=== PATIENT | male | born 1965 | race Two or more races ===

== ENCOUNTER 2024-10-31 12:15 | Emergency (ER) | payer OTHER, MEDICAID ==
[~2024-10-31] VITALS: Ht 165.1 cm; Wt 81.8 kg
--- NOTE | 2024-10-31 13:00 | ED.PDOC ---
GI ASSESSMENT HPI Comments HPI: Poor Historian. 59-year-old male with history of liver cirrhosis liver cancer and ascites presents to the emergency department for recurrence of his abdominal distention. Most recent paracentesis was last Sunday. Today Sunday he complaining of some abdominal discomfort and distention that started noticing this past Sunday. Patient has some associated mild shortness of breath. Denies any other acute symptoms. Denies any fever nausea or vomiting. VITALS: Temp: 98.3 F RR: 18 02 sat : 98% on room air HR: 104 BP: 137/96 PMH:liver cancer, DM, HTN PSH: back surgery, paracentesis Social history: denies tobacco use, denies ETOH use, denies drug use Medications: unknown Allergies: nkda REVIEW OF SYSTEMS: CONSTITUTIONAL: Denies acute: fever, diaphoresis, chills, HEAD: Denies acute: headache, photophobia Eyes: Denies acute: Double vision, vision loss, eye pain, eye discharge. EARS: Denies acute: tinnitus, hearing loss, ear discharge, ear pain, THROAT: Denies acute: sore throat, swelling, difficulty swallowing , pain with swallowing, change in voice. NECK: Denies acute: neck pain, neck swelling, stiff neck. HEART: Denies acute : chest pain, palpitations, LUNGS: Denies acute: SOB, wheezing, cough, hemoptysis ABDOMEN: Denies acute: Nausea, Vomiting, diarrhea, melena , hematemesis, hematochezia SKIN: Denies acute: rash, redness, lesions, itchiness. EXTREMITIES: Denies acute: calf pain, numbness, tingling, weakness, denies pain in extremity. Denies acute: Low back pain. Neuro: Denies acute: focal neurological deficit, motor or sensory focal neurological deficit, tremors, seizure like activity, confusion, dizziness, change in mental status, loss of bowel or bladder function, cauda equina like symptoms. : Denies acute: dysuria, hematuria, flank pain, increase in urinary frequency. PSYCH: Denies acute: hallucination, suicidal ideation, homicidal ideation. PHYSICAL EXAM: General: no acute distress, awake and alert. Head: normocephalic, atraumatic. Neck: supple, trachea is midline, no swelling. Throat: Normal phonation. Eyes:, no erythema, no purulent discharge, no proptosis, no icterus. Heart: regular rate, regular rhythm, no significant murmur appreciated. Lungs: no apparent respiratory distress, Able to speak in full sentences. No wheezing, no rhonchi, no crackles. No stridors Clear to auscultation bilaterally. Abdomen: non tender to palpation, noted distention, soft, no guarding, no rebound, + bowel sounds. Neuro: Awake, Alert, oriented to name, self, situation, follows commands GCS=15. Speech is normal. Skin: no petechia, no purpura, no cyanosis, non-pale, not jaundice. Lower extremities: --no - Pitting edema no deformity, no focal swelling, no calf TTP. Makes eye contact. moves all four extremities. Chief Complaint: Abdominal Pain Time Seen by MD: 12:47 Primary Care Provider: CHINMAY Reviewed Notes: Nurses Notes, Medications, Allergies Allergies: Coded Allergies: NO KNOWN ALLERGIES (Unverified , 10/22/15) Information Source: Patient Mode of Arrival: Wheelchair Past Medical History PAST MEDICAL HISTORY: Denies Surgical History: Denies all surgeries Family History Family History: Unknown Social History Smoker: Non-Smoker Alcohol: Denies ETOH Use Drugs: Denies Drug Use Lives In: Home Was a procedure done? Was a procedure done?: No X-Ray, Labs, Meds, VS Vital Signs Date Time Temp Pulse Resp B/P (MAP) Pulse Ox O2 Delivery O2 Flow Rate FiO2 10/31/24 14:20 122/90 10/31/24 13:57 101 17 122/90 (101) 99 10/31/24 13:57 101 17 99 Room Air 10/31/24 12:42 103 10/31/24 12:39 98.3 104 18 137/96 (110) 98 Lab Test 10/31/24 16:46 10/31/24 14:54 10/31/24 13:44 10/31/24 12:37 Range/Units Troponin I High Sensitivity Pending 3 L 4 </=54 ng/L White Blood Count 9.8 4.4-10.8 10^3/uL Red Blood Count 3.87 L 4.5-5.90 10^6/uL Hemoglobin 10.7 L 13.5-17.5 g/dL Hematocrit 32.5 L 41.0-53.0 % Mean Corpuscular Volume 84.0 80.0-100.0 fL Mean Corpuscular Hemoglobin 27.5 L 28.0-32.0 pg Mean Corpuscular Hemoglobin Concent 32.8 32.0-36.0 g/dL Red Cell Distribution Width 16.9 H 11.8-14.3 % Platelet Count 297 140-450 10^3/uL Mean Platelet Volume 7.6 6.9-10.8 fL Neutrophils (%) (Auto) 85.7 H 37.0-80.0 % Lymphocytes (%) (Auto) 7.1 L 10.0-50.0 % Monocytes (%) (Auto) 7.0 0.0-12.0 % Eosinophils (%) (Auto) 0.0 0.0-7.0 % Basophils (%) (Auto) 0.2 0.0-2.0 % Neutrophils # (Auto) 8.4 1.6-8.6 10 ^3/uL Lymphocytes # (Auto) 0.7 0.4-5.4 10 ^3/uL Monocytes # (Auto) 0.7 0-1.3 10 ^3/uL Eosinophils # (Auto) 0 0-0.8 10 ^3/uL Basophils # (Auto) 0 0-0.2 10 ^3/uL Nucleated Red Blood Cells 0.1 % Prothrombin Time 11.9 H 9.3-11.8 sec Prothrombin Time INR 1.13 0.9-1.15 Activated Partial Thromboplast Time 32.6 24.5-34.5 SEC Sodium Level 135 L 136-145 mmol/L Potassium Level 4.6 3.5-5.1 mmol/L Chloride Level 103 98-107 mmol/L Carbon Dioxide Level 24 20-31 mmol/L Anion Gap 8 5-15 Blood Urea Nitrogen 31 H 9-23 mg/dL Creatinine 0.93 0.700-1.30 mg/dL Glomerular Filtration Rate Calc 95 >90 mL/min BUN/Creatinine Ratio 33.3 H 10.0-20.0 Serum Glucose 151 H 74-106 mg/dL Lactic Acid Level 1.4 0.4-2.0 mmol/L Calcium Level 9.2 8.7-10.4 mg/dL Total Bilirubin 0.7 0.2-1.0 mg/dL Aspartate Amino Transferase (AST) 47 H 13-40 U/L Alanine Aminotransferase (ALT) 28 7-40 U/L Alkaline Phosphatase 696 H 46-116 U/L B-Type Natriuretic Peptide 22.58 0-100 pg/mL Total Protein 6.6 5.7-8.2 g/dL Albumin 3.5 3.2-4.8 g/dL Lipase 38 12-53 U/L Urine Color Yellow Yellow Urine Clarity Clear Clear Urine pH 5.0 5.0-9.0 Urine Specific [place] 1.029 1.001-1.035 Urine Protein 1+ H Negative Urine Ketones Negative Negative Urine Blood Negative Negative /uL Urine Nitrite Negative Negative Urine Bilirubin Negative Negative Urine Urobilinogen Normal Negative mg/dL Urine Leukocyte Esterase Negative Negative /uL Urine RBC 1 0 - 3 /hpf Urine WBC 2 0 - 3 /hpf Urine Squamous Epithelial Cells None seen <5 /hpf Urine Bacteria None seen None Seen /hpf Urine Hyaline Casts Mod 0 - 2 /lpf Urine Mucus Few None Seen Urine Glucose Normal Normal mg/dL Current Medications Medications (Trade) Dose Ordered Sig/Kirby Route Start Time Stop Time Status Last Admin Furosemide (Lasix Injection) 60 mg ONCE ONCE IV 10/31/24 13:15 10/31/24 13:18 DC 10/31/24 14:20 [place] [address] Ph: [phone] DIAGNOSTIC IMAGING Diagnostic Imaging Report : [id number] Signed PATIENT: OZIEL DRAPERCCT: [id number] UNIT: [id number] : 1965 LOC: ER ROOM / BED: / AGE / SEX: 59 / M ADM STATUS: REG ER SERVICE [id number] ORDERING PHYSICIAN: BILL RIVERO DO PROCEDURE(s): ABPL - CT AB PEL WO CON-NO ORAL OR IV REASON: abd pain ORDER NUMBER(s): [id number], ACCESSION NUMBER(s): [id number] Exam: CT CT AB PEL WO CON-NO ORAL OR IV History: abd pain Comparison Study: None Technique: Multidetector spiral CT of the abdomen and pelvis was performed from lung bases to pubic symphysis. Imaging was performed without IV contrast. Axial, coronal and sagittal multiplanar reformats were obtained from the axial data set by the technologist. Radiation dose : Abdomen/Pelvis: CTDIvol 15 mGy, DLP 850 mGy*cm. Findings: Evaluation of solid organs is limited due to lack of intravenous contrast use. Lung Bases: Small to moderate right pleural effusion with associated right basilar atelectasis and consolidation. Multiple nodules in the lung bases, largest in the left lower lobe measures up to 43 mm. Liver: Multiple liver masses, largest in the dome of the liver measures up to 77 mm. Gallbladder and biliary Tree: Unremarkable Spleen: Enlarged Pancreas: The pancreas is grossly normal in appearance. Adrenal Glands: Unremarkable Kidneys: Kidneys are grossly normal without calculi or hydronephrosis. Bladder: Grossly unremarkable for degree of distention. Bowel: The stomach is grossly normal in appearance. Small bowel and colon are normal in caliber and distribution. The appendix is not visualized; however, no secondary findings of acute appendicitis identified. Ascites: Large amount of abdominal and pelvic ascites. Lymphadenopathy: Subcentimeter mesenteric lymph nodes. Abdominal wall and Mesentery: Unremarkable. Vasculature: The visualized abdominal aorta is normal in size and caliber. Evaluation of abdominal and pelvic vessels is limited due to lack of intravenous contrast. Pelvic Organs: Unremarkable Musculoskeletal: Degenerative and postsurgical changes. IMPRESSION: 1. Multiple liver masses. Multiple lung nodules including a mass in the left lower lung measuring up to 43 mm. Mesenteric lymphadenopathy. Small to moderate right pleural effusion. Large amount of abdominal and pelvic ascites. Findings are consistent with metastatic disease. Primary is unclear, possibly hepatic. Clinical correlation and continued follow-up is recommended. Diagnostic parac entesis with cytology could provide an answer. Alternatively CT-guided biopsy of the left lung mass could be performed. Consider further evaluation with PET- CT. Abdomen could be further evaluated with MRI of the abdomen with contrast. Consider dedicated chest CT. Radiation optimization: All CT scans at this facility use at least one of these dose optimization techniques: Automated exposure control mA and/or kV adjustment per patient size (includes targeted exams where dose is matched to clinical indication) or iterative reconstruction. HS:Y ATED BY: STONEY RENE MD DICTATED DATE/TIME: 10/31/241331 SIGNED BY: STONEY RNEE MD SIGNED DATE/TIME: 10/31/241331 CC: [place] [address] Ph: [phone] DIAGNOSTIC IMAGING Diagnostic Imaging Report : [id number] Signed PATIENT: OZIEL DRAPERCCT: [id number] UNIT: [id number] : 1965 LOC: ER ROOM / BED: / AGE / SEX: 59 / M ADM STATUS: REG ER SERVICE 0000 ORDERING PHYSICIAN: BILL RIVERO DO PROCEDURE(s): ABDL - ABDOMEN LIMITED REASON: FLUID CHECK, ABD DISTENTION ORDER NUMBER(s): [id number], ACCESSION NUMBER(s): [id number] ULTRASOUND ABDOMEN limited, 4 QUADRANTS INDICATION: FLUID CHECK, ABD DISTENTION Evaluate for ascites. TECHNIQUE: The four quadrants of the abdomen were scanned in davidson-scale to assess for the presence of ascites. No solid organ assessment was performed. FINDINGS: Moderate ascites IMPRESSIONS: 1. moderate ascites. ATED BY: CLAUDINE RICH MD DICTATED DATE/TIME: 10/31/241336 SIGNED BY: CLAUDINE RICH MD SIGNED DATE/TIME: 10/31/241336 CC: Time of 1ST Reevaluation: 16:19 (The case was discussed with the [facility] [place] admitting team (HPI, physical exam, labs and diagnostic tests that were available at the time of disposition, ED course, treatment plan) on the phone. They agreed to transfer the patient to their service by ALS for further evaluation and treatment. Our radiologist was unable to perform the paracentesis here in the ED because he is gone for the day. Dr. Zuñiga authorization #[id number]. ) Reevaluation 1ST: Unchanged Patient Education/Counseling: Diagnosis, Treatment Family Education/Counseling: Diagnosis, Treatment Additional Information Patient presented with the above HPI.-- abdominal distention---workup was initiated. patient was found with the above mentioned diagnosis. the following medications were ordered: lasix, the following tests were ordered: COVID test, abdomen US, paracentesis, PT, PTPTT, EKG x 3, troponin x 3, CT abdomen and pelvis, UA, lipase, lactic acid, CBC, CMP, BNP. Patient ED course and VS have been stabilized. Patient has been reassessed in the ED and remained in a stable condition. Patient has been observed in the ED adequate length of time to insure improvement/stability. Escalation of care considered: Consideration of escalation to observation or admission. patient was admitted to the medicine team for further evaluation and treatment of their presentation. All the reports of any imaging studies that were ordered by myself were reviewed by myself. Departure 1 Departure Time of Disposition: 13:09 Impression: Primary Impression: Abdominal distention Additional Impressions: Ascites Abnormal EKG Liver cancer Metastatic disease Pleural effusion Pulmonary mass T wave inversion in EKG Disposition: 02 SHORT TERM HOSPITAL Admit to: Tele Condition: Guarded Discharged With: Self I personally scribed for BILL RIVERO DO ([email or web address]) on 10/31/24 at 13:00. Electronically submitted by Kali Oliveros ([email or web address]). I personally scribed for BILL RIVERO DO ([email or web address]) on 10/31/24 at 16:26. Electronically submitted by Kali Oliveros ([email or web address]). BILL RIVERO DO Oct 31, 2024 13:00
[2024-10-31 13:06] LABS: Urine Bacteria None Seen /hpf (None Seen)
--- NOTE | 2024-10-31 13:34 | DVH ---
Exam: CT CT AB PEL WO CON-NO ORAL OR IV History: abd pain Comparison Study: None Technique: Multidetector spiral CT of the abdomen and pelvis was performed from lung bases to pubic symphysis. Imaging was performed without IV contrast. Axial, coronal and sagittal multiplanar reform ats were obtained from the axial data set by the technologist. Radiation dose : Abdomen/Pelvis: CTDIvol 15 mGy, DLP 850 mGy*cm. Findings: Evaluation of solid organs is limited due to lack of intravenous contrast use. Lung Bases: Small to moderate right pleural effusion with associated right basilar atelectasis and co nsolidation. Multiple nodules in the lung bases, largest in the left lower lobe measures up to 43 mm . Liver: Multiple liver masses, largest in the dome of the liver measures up to 77 mm. Gallbladder and biliary Tree: Unremarkable Spleen: Enlarged Pancreas: The pancreas is grossly normal in appearance. Adrenal Glands: Unremarkable Kidneys: Kidneys are grossly normal without calculi or hydronephrosis. Bladder: Grossly unremarkable for degree of distention. Bowel: The stomach is grossly normal in appearance. Small bowel and colon are normal in caliber and d istribution. The appendix is not visualized; however, no secondary findings of acute appendicitis id entified. Ascites: Large amount of abdominal and pelvic ascites. Lymphadenopathy: Subcentimeter mesenteric lymph nodes. Abdominal wall and Mesentery: Unremarkable. Vasculature: The visualized abdominal aorta is normal in size and caliber. Evaluation of abdominal a nd pelvic vessels is limited due to lack of intravenous contrast. Pelvic Organs: Unremarkable Musculoskeletal: Degenerative and postsurgical changes. IMPRESSION: 1. Multiple liver masses. Multiple lung nodules including a mass in the left lower lung measuring up to 43 mm. Mesenteric lymphadenopathy. Small to moderate right pleural effusion. Large amount of abdom inal and pelvic ascites. Findings are consistent with metastatic disease. Primary is unclear, possib ly hepatic. Clinical correlation and continued follow-up is recommended. Diagnostic paracentesis wit h cytology could provide an answer. Alternatively CT-guided biopsy of the left lung mass could be pe rformed. Consider further evaluation with PET-CT. Abdomen could be further evaluated with MRI of the abdomen with contrast. Consider dedicated chest CT. Radiation optimization: All CT scans at this facility use at least one of these dose optimization rufus hniques: Automated exposure control mA and/or kV adjustment per patient size (includes targeted exams where dose is matched to clinical indication) or iterative reconstruction. HS:Y
[2024-10-31 13:38] LABS: Urine Blood Negative /uL (Negative); Urine Clarity Clear (Clear); Urine Color Yellow (Yellow); Urine Hyaline Cast MOD /lpf (0 - 2); Urine Mucus FEW (None Seen); Urine Protein, UAD 1+ (Negative); Urine Specific Gravity 1.029 (1.001-1.035); Urine Urobilinogen Normal (Negative); Urine WBC 2 /hpf (0 - 3)
--- NOTE | 2024-10-31 13:39 | DVH ---
ULTRASOUND ABDOMEN limited, 4 QUADRANTS INDICATION: FLUID CHECK, ABD DISTENTION Evaluate for ascites. TECHNIQUE: The four quadrants of the abdomen were scanned in davidson-scale to assess for the presence of ascites. N o solid organ assessment was performed. FINDINGS: Moderate ascites IMPRESSIONS: 1. moderate ascites.
[2024-10-31 13:54] LABS: Basophils # (auto) 0 10 ^3/uL (0-0.2); Basophils % (auto) 0.2 % (0.0-2.0); Eosinophils # (auto) 0 10 ^3/uL (0-0.8); Hematocrit 32.5 % (41.0-53.0); Hemoglobin 10.7 g/dL (13.5-17.5); Lymphocytes # (auto) 0.7 10 ^3/uL (0.4-5.4); Lymphocytes % (auto) 7.1 % (10.0-50.0); Mean Corpuscular Hemoglobin 27.5 pg (28.0-32.0); Mean Corpuscular Hgb Conc. 32.8 g/dL (32.0-36.0); Monocytes # (auto) 0.7 10 ^3/uL (0-1.3); Neutrophils # (auto) 8.4 10 ^3/uL (1.6-8.6); Neutrophils % (auto) 85.7 % (37.0-80.0); Nucleated Red Blood Cells % 0.1 %; Platelet Count (auto) 297 10^3/uL (140-450); Red Blood Cells 3.87 10^6/uL (4.5-5.90); Red Cell Distribution Width 16.9 % (11.8-14.3); White Blood Cell 9.8 10^3/uL (4.4-10.8)
[2024-10-31] MEDS: FUROSEMIDE 100 MG/10ML VIAL IV ONE (14:20)
[2024-10-31 14:33] LABS: Alanine Aminotransferase 28 U/L (7-40); Albumin 3.5 g/dL (3.2-4.8); Anion Gap 8 (5-15); BUN/Creatinine Ratio 33.3 (10.0-20.0); Calcium 9.2 mg/dL (8.7-10.4); Carbon Dioxide 24 mmol/L (20-31); Chloride 103 mmol/L (98-107); Potassium 4.6 mmol/L (3.5-5.1); Total Protein 6.6 g/dL (5.7-8.2)
[2024-10-31 14:42] LABS: Alkaline Phosphatase 696 U/L (46-116); Aspartate Aminotransferase 47 U/L (13-40); Blood Urea Nitrogen 31 mg/dL (9-23); Glucose 151 mg/dL (74-106); Sodium 135 mmol/L (136-145)
[2024-10-31 14:58] LABS: Lipase 38 U/L (12-53)
[2024-10-31 15:00] LABS: Bilirubin, Total 0.7 mg/dL (0.2-1.0)
[2024-10-31 15:14] LABS: INR 1.13 (0.9-1.15); Partial Thromboplastin Time 32.6 SEC (24.5-34.5); Prothrombin Time 11.9 sec (9.3-11.8)
[2024-10-31 18:51] LABS: COVID19 ANTIGEN SOFIA FIA NEGATIVE (NEGATIVE)
[2024-10-31 21:00] VITALS: PULSE 111; RESP 20; O2SAT 98
[2024-10-31] MEDS: ACETAMINOPHEN 325 MG TAB PO ONE (21:34)
[2024-10-31 21:40] VITALS: BP 139/100; PULSE 107; RESP 20; TEMP 97.9; O2SAT 98
--- NOTE | 2024-11-05 09:15 | ECG ---
[facility] Test Date: 2024-10-31 Test Time: 12:42:56 Pat [facility]: Gender: M [employer] Super[employer]: IKE : 1965 Requested By: BILL RIVERO Order Number: [id number] Reading MD: Stanley Chavez Measurements Intervals [place] Rate: 103 P: -85 GA: 118 QRS: 67 QRSD: 90 T: -36 QT: 330 QTc: 432 Interpretive Statements Ectopic atrial tachycardia, unifocal Repol abnrm suggests ischemia, inferior leads Electronically Signed On 11-07-2024 9:46:41 PST by Stanley Chavez Please click the below link to view image of tracing.
== END 2024-10-31 21:40 | disposition short-term general hospital (02) ==
LOC: ER 12:15
DX: R14.0 Abdominal distension (gaseous) (principal); R18.8 Other ascites; R94.31 Abnormal electrocardiogram [ECG] [EKG]; J90 Pleural effusion, not elsewhere classified; E11.9 Type 2 diabetes mellitus without complications; I10 Essential (primary) hypertension; Z85.05 Personal history of malignant neoplasm of liver; Z98.890 Other specified postprocedural states; Z88.8 Allergy status to other drugs, medicaments and biological substances; Z20.822 Contact with and (suspected) exposure to COVID-19
CPT/HCPCS: 36415; 74176; 76705; 80053; 81001; 83605; 83690; 83880; 84484; 85025; 85610; 85730; 87426; 96374; 99285; J1940; 93005